=== PATIENT | female | born 1965 | race Asian ===

== ENCOUNTER → 2025-01-01 14:20 | Outpatient (CLI) | payer OTHER, SELFPAY ==
[2025-01-01 16:23] LABS: Influenza A - CEPHEID Flu A NEGATIVE (NEGATIVE); Influenza B - CEPHEID Flu B NEGATIVE (NEGATIVE)
[2025-01-01 16:29] LABS: COVID-19 CEPHEID 4-PLEX PCR Negative (Negative)
== END ==
PROVIDERS: Family Provider Family Medicine; Visit Provider Nurse Practitioner Family
DX: R05.1 Acute cough (principal)
CPT/HCPCS: 87637

== ENCOUNTER → 2025-01-01 14:32 | Outpatient (CLI) | payer OTHER, SELFPAY ==
--- NOTE | 2025-01-01 14:34 | DI.RAD.S_ITS ---
PROCEDURE: XR CHEST 2V INDICATIONS: Cough TECHNIQUE: 2 views of the chest were acquired. COMPARISON: None. FINDINGS AND IMPRESSION: No airspace consolidation or pleural effusion. Normal heart size. Mild degenerative osseous changes. Dictated by: Edis Reyes M.D. on 01/01/2025 at 15:38 Approved by: Edis Reyes M.D. on 01/01/2025 at 15:38
== END ==
LOC: RAD 14:34
PROVIDERS: Family Provider Family Medicine; Referring Provider Nurse Practitioner Family; Visit Provider Nurse Practitioner Family
DX: R05.1 Acute cough (principal); M89.9 Disorder of bone, unspecified
CPT/HCPCS: 71046; 87637

== ENCOUNTER 2025-01-03 18:37 | Emergency (ER) | payer OTHER, SELFPAY ==
[2025-01-03] VITALS (11 sets, daily range): BP systolic 93–122; BP diastolic 54–57; PULSE 54–63; RESP 13–29; TEMP 36.6; O2SAT 92–100; BMI 30.9
--- NOTE | 2025-01-03 19:13 | DI.CT.S_ITS ---
PROCEDURE: CT CHEST ABD PEL WO CON INDICATIONS: fall TECHNIQUE: After the administration of oral contrast, 5 mm thick sections acquired from the lung apices to the symphysis pubis. 5 mm thick coronal and sagittal reformats acquired, with additional 7 mm coronal MIP reformats through the lungs. For radiation dose reduction, the following was used: automated exposure control, adjustment of mA and/or kV according to patient size. COMPARISON: [facility], CT, CT CERVICAL SPINE WO CON, 01/03/2025, 19:26. [facility], CT, CT HEAD/BRAIN WO CON, 01/03/2025, 19:26. FINDINGS: Image quality: Limited by lack of IV contrast. CHEST: Lower Neck: No enlarged lymph nodes. Thyroid: No thyroid nodules which require sonographic follow up, per consensus guidelines. Axillae: No enlarged lymph nodes. Chest Wall: Unremarkable. Bones: Unremarkable. Lungs and Pleura: No pneumothorax or pleural effusions. No consolidation or suspicious nodules. Heart: Heart size is normal. No pericardial effusion. Thoracic Vessels: The aorta and pulmonary arteries demonstrate normal size. Mediastinum and Leticia: No enlarged lymph nodes. Esophagus: No wall thickening. No hiatal hernia. ABDOMEN: Liver: No solid mass. Gallbladder: No radiopaque gallstones or wall thickening. Biliary ducts: No biliary dilation. Pancreas: No ductal dilation. Spleen: Size is within normal limits. Adrenal Glands: No adrenal nodules. Kidneys and Ureters: No hydronephrosis. No solid mass. No complex renal cystic lesion which requires follow up. Stomach and Bowel: Normal colonic caliber, without significant wall thickening. No dilated loops of small bowel are seen. Peritoneum: No abnormal intraperitoneal fluid. No free air. Ventral Wall: No hernia. Abdominal Nodes: No retroperitoneal or mesenteric adenopathy by size criteria. Vessels: Aorta and inferior vena cava are normal in size. PELVIS: Pelvic Organs: No adnexal masses are seen on either side. Bladder: Unremarkable. Pelvic Nodes: No enlarged lymph nodes. Miscellaneous: No inguinal hernias are seen. Soft tissue bruising can be seen involving the right buttock. Bones: There is a fracture seen through the T11 level, with 15% loss of height centrally. Fracture lines also extend through the posterior elements of the T10 level. Mild adjacent soft tissue hematoma can be seen. IMPRESSION: There is a mild acute fracture seen within the T11 level, with 15% loss of height centrally. The fracture lines extend posteriorly to involve the posterior elements of the T10 level. Soft tissue bruising is seen involving the right buttock. No right hip or right pelvis fracture is seen. Dictated by: Yandel Campbell M.D. on 01/03/2025 at 19:06 Approved by: Yandel Campbell M.D. on 01/03/2025 at 19:10
--- NOTE | 2025-01-03 19:13 | DI.CT.S_ITS ---
PROCEDURE: CT CERVICAL SPINE WO CON INDICATIONS: fall TECHNIQUE: Noncontrast 3 mm thick sections acquired from the skull base to the T4 level. Sagittal and coronal reformats were then constructed. For radiation dose reduction, the following was used: automated exposure control, adjustment of mA and/or kV according to patient size. COMPARISON: [facility], CT, CT CHEST ABD PEL WO CON, 01/03/2025, 19:26. [facility], CT, CT HEAD/BRAIN WO CON, 01/03/2025, 19:26. FINDINGS: Image quality: This examination is somewhat limited by quantum mottle artifact. Bones: No fractures or dislocations. Visualized superior ribs are intact. Age-appropriate bony degenerative changes are seen. Soft tissues: Prevertebral soft tissues are normal in thickness. No paravertebral hematomas. No apical pneumothoraces. IMPRESSION: No displaced fracture or traumatic subluxation. Dictated by: Yandel Campbell M.D. on 01/03/2025 at 19:10 Approved by: Yandel Campbell M.D. on 01/03/2025 at 19:11
--- NOTE | 2025-01-03 19:13 | DI.CT.S_ITS ---
PROCEDURE: CT HEAD/BRAIN WO CON INDICATIONS: fall TECHNIQUE: Noncontrast 4.5 mm thick angled axial sections acquired from the foramen magnum to the vertex, with coronal and sagittal reformats. For radiation dose reduction, the following was used: automated exposure control, adjustment of mA and/or kV according to patient size. COMPARISON: [facility], CT, CT CERVICAL SPINE WO CON, 01/03/2025, 19:26. [facility], CT, CT CHEST ABD PEL WO CON, 01/03/2025, 19:26. FINDINGS: Image quality: Diagnostic. CSF spaces: Basal cisterns are patent. No extra-axial fluid collections. The ventricles are symmetric in size and shape. Brain: No intracranial bleeds or mass effect. There is cerebral volume loss, with resultant ventricular and sulcal prominence. There are periventricular and deep white matter chronic small vessel ischemic changes. There is intracranial internal carotid artery atherosclerosis. Skull and face: Calvarium and visualized facial bones appear intact, without suspicious lesions. Sinuses: Visualized sinuses and mastoids are clear. IMPRESSION: No acute intracranial hemorrhage is seen. No acute intracranial pathology. Dictated by: Yandel Campbell M.D. on 01/03/2025 at 19:05 Approved by: Yandel Campbell M.D. on 01/03/2025 at 19:06
--- NOTE | 2025-01-03 19:17 | PC.NURSE ---
185 Modified trauma called over head.
[2025-01-03] MEDS: KETOROLAC 30 MG/ML VIAL 60 MG IM (21:47)
--- NOTE | 2025-01-03 21:48 | ED.FALL ---
HPI - Fall General Chief Complaint: Trauma Stated Complaint: fell off latter from gutter height, back, hip pain Time Seen by Provider: 01/03/25 19:48 Source: patient Mode of arrival: Ambulatory History of Present Illness HPI Narrative: 59-year-old female who was on a ladder trying to clean out her gutter and fell backwards on her lower back area. Most of her pain right now is in her lower back and right pelvic region. She denies any neurovascular changes. Related Data Previous Rx's ?Medication ?Instructions ?Recorded oxycodone-acetaminophen 5 mg-325 1 tab PO Q6H PRN pain #10 tabs 01/03/25 mg tablet (Percocet) Allergies Allergy/AdvReac Type Severity Reaction Status Date / Time No Known Drug Allergies Allergy Verified 01/01/25 14:19 Review of Systems Review of Systems ROS Unobtainable: All systems reviewed & are unremarkable except as noted in HPI and below Patient History Surgical History (Updated 07/10/17 @ 05:40 by Conversion Provider) History of third molar tooth extraction Status post delivery (10/27/98) Status post delivery (10/27/90) Social History Smoking Status: Never smoker Smoking Status: Never smoker Exam Narrative Exam Narrative: General: Patient appears to be in no acute distress, acting appropriately Head: normocephalic, atraumatic, HEENT: Pupils equal round reactive, eyes tracking well, neck supple, no JVD Heart: regular rate and rhythm, no murmurs, rubs, or gallops heard Lungs: clear to auscultation, no adventitious sounds Abdomen: soft , nontender, nondistended, positive bowel sounds Neurological: no focal neurological signs, moving all extremities well, alert and oriented x3, Psych: good judgment ,good insight, mood is normal. Initial Vital Signs Initial Vital Signs: Vital Signs Temperature 98 F 01/03/25 18:53 Pulse Rate 62 01/03/25 18:53 Respiratory Rate 17 01/03/25 18:53 Blood Pressure 122/57 L 01/03/25 18:53 Pulse Oximetry 100 01/03/25 18:53 Oxygen Delivery Method Room Air 01/03/25 18:53 Course Orders Ordered: ED Orders 01/03/25 19:13 CT cervical spine wo con Stat CT chest abd pel wo con Stat CT head/brain wo con Stat Discontinued Medications Ketorolac Tromethamine (Ketorolac 30 Mg/Ml Vial) 60 mg IM NOW ONE Stop: 01/03/25 21:40 Last Admin: 01/03/25 21:47 Dose: 60 mg Documented By: HERMILO Oxycodone/Acetaminophen (Oxycodone/Apap 5/325 Prepack) 1 bottle MISC DIRECTED ONE Stop: 01/03/25 22:28 Last Admin: 01/03/25 22:32 Dose: 1 bottle Documented By: GW Consultations Consultation #1: Dr bai orthopedic surgeon made aware of her situation. Agreed with discharge plans and will follow up in clinic. Vital Signs Vital signs: Vital Signs - 8 hr 01/03/25 19:48 01/03/25 20:00 01/03/25 20:30 Pulse Rate 60 59 L 60 Respiratory Rate 29 H 21 13 Blood Pressure Pulse Oximetry 95 95 92 Oxygen Delivery Method 01/03/25 21:00 01/03/25 21:30 01/03/25 22:00 Pulse Rate 63 61 59 L Respiratory Rate Blood Pressure Pulse Oximetry 94 92 Oxygen Delivery Method 01/03/25 22:02 01/03/25 22:03 01/03/25 23:04 Pulse Rate 62 54 L Respiratory Rate 22 Blood Pressure 108/56 L Pulse Oximetry 92 97 Oxygen Delivery Method 01/03/25 23:05 01/03/25 23:05 Pulse Rate 57 L Respiratory Rate Blood Pressure 93/54 L Pulse Oximetry 97 Oxygen Delivery Method Room Air MDM - Fall Imaging Data CT scan - head: Radiologist's Impression: No acute intracranial hemorrhage is seen. No acute intracranial pathology. CT - cervical spine: Radiologist's Impression: No displaced fracture or traumatic subluxation. ct chest/abdomen/pelvis : Radiologist's Impression: There is a mild acute fracture seen within the T11 level, with 15% loss of height centrally. The fracture lines extend posteriorly to involve the posterior elements of the T10 level. Soft tissue bruising is seen involving the right buttock. No right hip or right pelvis fracture is seen. [facility] Narrative Medical decision making narrative: 59-year-old female who fell from a ladder while trying to remove debris from her gutter. She fell backwards and ultimately was found to have a T11 mild acute fracture. Patient given an abdominal binder here in the ED since no back brace was available. Patient given some take-home Percocets and prescribe some more along with a Toradol injection for pain control. Her pain was controlled a a bit better upon discharge. Advised to follow up with Orthopedic surgery this week. They are aware of her situation. Discharge Plan Departure Patient Disposition: Home Clinical Impression: Fracture, thoracic vertebra Qualifiers: Encounter type: initial encounter Thoracic vertebra fracture level: T11 Fracture type: closed Fracture morphology: other fracture Qualified Code(s): S22.088A - Other fracture of T11-T12 vertebra, initial encounter for closed fracture Instructions: How to Prevent Falls Activity Restrictions/Additional Instructions: Use pain meds as prescribed. Try to minimize movement of lower back including twisting, turning, bending and flexing. Use a sturdy back brace during the day. The follow up with Orthopedic surgery this next week. Information given in discharged. Come back sooner if having any new neurological signs. Prescriptions: New oxycodone-acetaminophen [Percocet] 5-325 mg tablet 1 tab PO Q6H PRN (Reason: pain) Qty: 10 0RF Referrals: Miscellaneous,MD Janae [Primary Care Provider, Medical] Sherine Bai DO [Physician, Orthopedic Surgery] Stand Alone Forms: Patient Portal/API
== END 2025-01-03 23:32 | disposition home or self-care (01) ==
PROVIDERS: Emergency Provider Family Medicine; Family Provider Family Medicine
DX: S22.089A Unspecified fracture of T11-T12 vertebra, initial encounter for closed fracture (principal); W11.XXXA Fall on and from ladder, initial encounter
CPT/HCPCS: 70450; 71250; 72125; 74176; 96372; 99284; J1885